=== PATIENT | male | born 1985 | race Hispanic/Latino ===

== ENCOUNTER 2025-02-21 11:29 | Emergency (ER) | payer SELFPAY ==
[2025-02-21] MEDS ORDERED: MORPHINE 2 MG/ML SYR ONE (11:48)
[2025-02-21] MEDS ORDERED: NA CHLORIDE 0.9% 100 ML ONE (11:48)
[2025-02-21] MEDS ORDERED: TDAP (DIPHTH,PERTUSS(ACELL),TET VAC) 0.5 ML VIAL IMVAC ONE (11:48)
[2025-02-21] MEDS ORDERED: ONDANSETRON 4 MG/2 ML VIAL ONE (11:48)
[2025-02-21] MEDS ORDERED: CEFAZOLIN SODIUM 2 GM/VIAL ONE (11:49)
[2025-02-21 11:52] LABS: Absolute Lymphocytes (CBC) 4.2 K/uL (0.7-4.9); Hematocrit 43.5 % (39.6-49.0); Hemoglobin 14.7 g/dL (13.6-17.9); MCH 29.8 pg (27.0-35.0); MCHC 33.9 g/dL (32.0-36.0); MCV 87.9 fL (80-100); MPV 8.1 fL (7.6-11.3); Nucleated RBC Absolute Count 0.0 (0-0); Nucleated Red Blood Cells % 0.1 % (0-0); RBC Red Blood Cell Count 4.95 M/uL (4.33-5.43); White Blood Count 9.20 thou/uL (4.3-10.9)
--- NOTE | 2025-02-21 11:52 | ER ---
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 End of ll1 finger hanging on by skin, bleeding controlled with pressure held dressing. Coronavirus screen: Client denies travel out of the [place] in the last 14 days. At this time, the client does not indicate any symptoms associated with coronavirus-19. Ebola Screen: Patient denies travel to an Ebola-affected area in the 21 days before illness onset. Initial Sepsis Screen: Does the patient meet any 2 criteria? No. Patient's initial sepsis screen is negative. Does the patient have a suspected source of infection? No. Patient's initial sepsis screen is negative. Risk Assessment: Do you want to hurt yourself or someone else? Patient reports no desire to harm self or others. Onset of symptoms was February 21, 2025. 11:31 Method Of Arrival: Ambulatory ll1 11:31 Acuity: SHANEL 2 ll1 Historical: - Allergies: 11: No Known Allergies; ll1 - PMHx: 11:31 None; ll1 - PSHx: 11:31 None; ll1 - Immunization history:: Adult Immunizations up to date. - Family history:: not pertinent. Screenin:10 [facility] ED Fall Risk Assessment (Adult) History of falling in the last 3 months, hb including since admission No falls in past 3 months (0 pts) Confusion or Disorientation No (0 pts) Intoxicated or Sedated No (0 pts) Impaired Gait No (0 pts) Mobility Assist Device Used No (0 pt) Altered Elimination No (0 pt) Score/Fall Risk Level 0 - 2 = Low Risk Oriented to surroundings, Maintained a safe environment, Educated pt \T\ family on fall prevention, incl call for assistance when getting out of bed. Abuse screen: Denies threats or abuse. Denies injuries from another. Nutritional screening: No deficits noted. Tuberculosis screening: No symptoms or risk factors identified. Vital Signs: 11:31 Resp 17; Weight 65 kg; Pain 8/10; ll1 11:35 BP 148 / 88; Pulse 62; Resp 19 S; Temp 97.9(O); Pulse Ox 100% on R/A; Height 5 ft. 2 aa5 in. (R); 11:31 Pain Scale: Adult ll1 ED Course: 11:30 Patient arrived in ED. ll1 11:30 Alberto Harris MD is Attending Physician. rn 11:31 Arm band placed on Patient placed in an exam room, on a stretcher. ll1 11:32 Triage completed. ll1 11:43 Krupa Tracey, RN is Primary Nurse. kb4 11:43 transfer initiated with Raquel at the [facility]. bc6 11:44 XRAY Hand RIGHT 3 View In Process Unspecified. EDMS 11:51 Inserted saline lock: 20 gauge in left antecubital area, using aseptic technique. Blood pm7 collected. Flushed with 10 mL NS. 11:53 Initial lab(s) drawn, by me, sent to lab. pm7 12:03 acceptance received with Raquel for DR Tate Barreto at the [facility] ER. bc6 12:31 lamont with [facility] accepted transfer. bc6 Administered Medications: 11:59 Drug: Boostrix Tdap IM 0.5 ml IM once; as a single dose Route: IM; Site: affected area; hb 11:59 Drug: ceFAZolin IVPB 2 grams IVPB once over 30 mins; (mix in 100 mL NS) Route: IVPB; hb Infused Over: 30 mins; Site: left antecubital; 11:59 Drug: morphine IVP or IV 4 mg IVP once over 4 mins Route: IVP; Infused Over: 4 mins; hb Site: left antecubital; 11:59 Drug: Ondansetron IVP 4 mg IVP once; over 2 minutes Route: IVP; Site: left antecubital; hb Outcome: 11:52 ER care complete, transfer ordered by . rn 13:07 Patient left the ED. ll1 Signatures: Dispatcher [employer] EDMS Alberto Harris MD MD rn Calderon, Audri, RN RN aa5 Archana Tapia RN RN hb Lewis, Lynsay, RN RN ll1 Bita Novak bc6 Krupa Tracey, RN RN kb4 Debra Lucero pm7 Corrections: (The following items were deleted from the chart) 12:03 11:35 BP 148 / 88; Pulse 62bpm; Resp 19bpm; Spontaneous; Pulse Ox 100% RA; Temp 97.9F aa5 Oral; aa5 12:10 11:43 transfer initiated with Stephanie at the [facility]6 bc6
--- NOTE | 2025-02-21 11:52 | EDPHYS ---
Physician Documentation [facility] Name: Maxx Xlaclhca Age: 39 yrs Sex: Male : 1985 Arrival Date: 02/21/2025 Time: 11:29 Bed 3 Private MD: ED Physician Alberto Harris HPI: 02/21 11:45 This 39 yrs old Male presents to ER via Ambulatory with complaints of finger rn amputation. 11:45 Patient accidentally had crush injury to the right second digit, suffered distal finger rn amputation. No other injury. Unknown last tetanus. No medical problems. N.p.o. since last night.. Historical: - Allergies: 11: No Known Allergies; ll1 - PMHx: 11: None; ll1 - PSHx: 11:31 None; ll1 - Immunization history:: Adult Immunizations up to date. - Family history:: not pertinent. ROS: 11:45 Constitutional: Negative for fever, chills, and weight loss, MS/Extremity: Positive for rn right second digit amputation Exam: 11:45 Constitutional: This is a well developed, well nourished patient who is awake, alert, rn and in no acute distress. MS/ Extremity: Nail intact Vital Signs: 11:31 Resp 17; Weight 65 kg; Pain 8/10; ll1 11:35 BP 148 / 88; Pulse 62; Resp 19 S; Temp 97.9(O); Pulse Ox 100% on R/A; Height 5 ft. 2 aa5 in. (R); 11:31 Pain Scale: Adult ll1 MDM: 11:30 Medical Screening Exam initiated rn 11:48 Differential diagnosis: open fracture, Amputation. Data reviewed: vital signs, nurses rn notes, radiologic studies, plain films, and as a result, I will admit patient. Independent interpretation of the following test(s) in the Emergency Department X-Ray: My interpretation is X-ray images right hand show traumatic amputation at level of DIP with distal phalanx comminuted fracture per my interpretation. Counseling: I had a detailed discussion with the patient and/or guardian regarding the historical points, exam findings, and any diagnostic results supporting the discharge/admit diagnosis, radiology results, the need to transfer to another facility, for higher level of care, [facility] does not immediately have the required specialist. Response to treatment: the patient's symptoms have mildly improved after treatment, and as a result, I will admit patient. 02/21 11:36 Order name: CBC with Diff; Complete Time: 12:01 rn 02/21 11:36 Order name: Basic Metabolic Panel; Complete Time: 12:23 rn 02/21 11:36 Order name: Protime (+inr); Complete Time: 12:23 rn 02/21 11:36 Order name: Ptt, Activated; Complete Time: 12:23 rn 02/21 11:36 Order name: XRAY Hand RIGHT 3 View; Complete Time: 12:23 rn 02/21 11:36 Order name: IV Start; Complete Time: 11:47 rn 02/21 11:36 Order name: NPO; Complete Time: 11:47 rn Administered Medications: 11:59 Drug: Boostrix Tdap IM 0.5 ml IM once; as a single dose Route: IM; Site: affected area; hb 11:59 Drug: ceFAZolin IVPB 2 grams IVPB once over 30 mins; (mix in 100 mL NS) Route: IVPB; hb Infused Over: 30 mins; Site: left antecubital; 11:59 Drug: morphine IVP or IV 4 mg IVP once over 4 mins Route: IVP; Infused Over: 4 mins; hb Site: left antecubital; 11:59 Drug: Ondansetron IVP 4 mg IVP once; over 2 minutes Route: IVP; Site: left antecubital; hb Disposition Summary: 02/21/25 11:52 Transfer Ordered Notes: Transfer Location: [facility] rn Reason: Higher level of care rn Condition: Stable rn Problem: new rn Symptoms: have improved rn Accepting Physician: (02/21/25 13:07) ll1 Diagnosis - 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 Total time: 35 rn minutes Signatures: Dispatcher [employer] EDAlberto Odonnell MD MD rn Baxter, Heather, RN RN hb Lewis, Lynsay RN RN ll1 Corrections: (The following items were deleted from the chart) 11:36 11:36 CBC+H.LAB.BRZ ordered. EDMS EDMS 11:36 11:36 BASIC METABOLIC PANEL+C.LAB.BRZ ordered. EDMS EDMS 11:36 11:36 PROTIME (+INR)+COAG.LAB.BRZ ordered. EDMS EDMS 11:36 11:36 PTT, ACTIVATED+COAG.LAB.BRZ ordered. EDMS EDMS 13:07 11:52 Dr. lewis ll1
[2025-02-21 12:02] LABS: PT Prothrombin Time 12.4 SECONDS (10-13.0); PTT, Activated Partial Thromb 29.3 SECONDS (27.2-37.4); Protime INR 1.1
[2025-02-21 12:08] LABS: Anion Gap 5.9 mEq/L (5.0-15.0); BUN Blood Urea Nitrogen 16.0 mg/dL (7-18); Glucose Level 104.0 mg/dL (74-106); Potassium 2.9 mEq/L (3.5-5.1)
--- NOTE | 2025-02-21 12:17 | RAD REPORT ---
EXAMINATION: Hand Right 3 View VIEWS: Three views CLINICAL INDICATION: Male, 39 years old. 2nd finger injury, degloving with possible fracture COMPARISON: No prior exams IMPRESSION: Partial amputation with comminuted fracture of the second finger distal phalanx. The fracture extends down to the articular surface. The second middle phalanx appears grossly intact though there is some overlapping bandage material and bony fragments that could obscure a small fracture. The tuft is distracted by approximately 4 mm. No other fractures identified. No definite radiopaque foreign body.
[2025-02-21 13:12] VITALS: BP 148/88; TEMP 97.9; O2SAT 100
== END 2025-02-21 13:07 | disposition short-term general hospital (02) ==
LOC: ER 11:29
DX: S68.120A Partial traumatic metacarpophalangeal amputation of right index finger, initial encounter (principal)
CPT/HCPCS: 36415; 80048; 85025; 85610; 85730; 90715; 96372; 96374; 96375; 99284; J2270; J2405